=== PATIENT | female | born 1990 | race Caucasian/White ===

== ENCOUNTER 2024-04-25 14:35 | Emergency (ER) | payer OTHER ==
[~2024-04-25] VITALS: Ht 165.1 cm; Wt 75.7 kg
[2024-04-25 17:17] VITALS: BP 118/72; O2SAT 99
== END 2024-04-25 17:18 | disposition home or self-care (01) ==
LOC: ER 14:35
DX: H00.012 Hordeolum externum right lower eyelid (principal)
CPT/HCPCS: A4606; A4663